=== PATIENT | female | born 2000 | race Caucasian/White ===

== ENCOUNTER 2023-05-14 08:26 | Emergency (ER) | payer OTHER, SELFPAY ==
[2023-05-14] MEDS ORDERED: Ondansetron PF 4 MG/2 ML Vial ONE (08:58)
[2023-05-14] MEDS ORDERED: Morphine 4 MG/ML VIAL ONE (08:58)
[2023-05-14 09:00] LABS: #Basophils 0.1 10x3/uL (0.0-0.2); #Eosinphils 0.4 10x3/uL (0.0-0.5); #Monocytes 0.4 10x3/uL (0.0-1.1); #Neutrophils 3.1 10x3/uL (1.5-8.4); %Basophils 0.8 % (0.0-2.0); %Eosinophils 5.8 % (0.0-6.0); %Lymphocytes 36.4 % (18.0-47.0); %Monocytes 6.3 % (0.0-10.0); %Neutrophils 50.4 % (40.0-75.0); Hemoglobin 13.1 g/dL (12.0-15.5); Mean Corpuscular Volume 82.3 fl (81.6-98.3); Mean Platelet Volume 10.8 fl (7.4-10.4); Platelet Count 381 10x3/uL (150-450); RBC Distribution Width 14.2 % (11.5-14.5); Red Blood Cell (RBC) Count 4.68 10x6/uL (3.90-5.03); White Blood Cell (WBC) Count 6.2 10x3/uL (3.5-10.5)
[2023-05-14 09:06] LABS: BHCG - Serum Negative (NEGATIVE); Pregs Control Background? CLEAR/WHITE (CLR/WHITE); Pregs Control Bar Appear? YES (CONTROL BAR)
[2023-05-14 09:14] LABS: ALT (SGPT) 19 U/L (8-55); AST (SGOT) 17 U/L (5-34); Alkaline Phosphatase 88 U/L (40-110); Anion Gap 14 mmol/L (10-20); BUN (Urea Nitrogen) 11 mg/dL (7.0-18.7); Bilirubin, Total 0.6 mg/dL (0.2-1.2); Calc. Creatinine Clearance 0 mL/min (70-130); Calcium 9.4 mg/dL (7.8-10.44); Carbon Dioxide 21 mmol/L (22-29); Chloride 108 mmol/L (98-107); Estimated GFR 133; Glucose 90 mg/dL (70-105); Lipase 10 U/L (8-78); Potassium 3.8 mmol/L (3.5-5.1); Sodium 139 mmol/L (136-145)
[2023-05-14] MEDS ORDERED: Iopamidol 300 61% 100 ML VIAL FS ONE (09:36)
[2023-05-14 10:17] LABS: Bilirubin Neg (Negative); Blood, Urine Negative (Negative); Clarity Clear (Clear); Glucose, Urine (Dipstick) Normal (Negative); Ketone, Urine Negative (Negative); Leukocyte Negative (Negative); Nitrite Negative (Negative); Protein, Urine (Dipstick) Negative (Neg-Trace); Urobilinogen Normal mg/dL (Less than 2)
[2023-05-14 10:30] LABS: RBC/HPF None Seen HPF (0-3)
[2023-05-14 10:31] LABS: Bacteria/HPF 1+ HPF (None Seen); CAUTI Indications for Culture Pelvic or flank pain; WBC/HPF 0-3 HPF (0-3)
[2023-05-14 10:32] LABS: Urine Culture Reflex No No
== END 2023-05-14 12:14 | disposition home or self-care (01) ==
LOC: CSHERS 08:26
DX: R10.31 Right lower quadrant pain (principal); E03.9 Hypothyroidism, unspecified
CPT/HCPCS: 36415; 74177; 76705; 80053; 81001; 83690; 84703; 85025; 93005; 96361; 96374; 96375; J2270; J2405; Q9967

== ENCOUNTER 2023-06-25 18:29 | Emergency (ER) | payer OTHER ==
[2023-06-25 19:25] LABS: #Monocytes 0.4 10x3/uL (0.0-1.1); #Neutrophils 6.2 10x3/uL (1.5-8.4); %Basophils 0.4 % (0.0-2.0); %Eosinophils 0.1 % (0.0-6.0); %Lymphocytes 5.3 % (18.0-47.0); %Monocytes 5.6 % (0.0-10.0); %Neutrophils 88.5 % (40.0-75.0); Hematocrit 39.3 % (34.9-44.5); Hemoglobin 13.2 g/dL (12.0-15.5); Mean Corpuscular HGB CONC 33.6 g/dL (32.0-36.0); Mean Corpuscular Hemoglobin 27.9 pg (27.0-33.0); Mean Corpuscular Volume 83.1 fl (81.6-98.3); Mean Platelet Volume 11.1 fl (7.4-10.4); Platelet Count 325 10x3/uL (150-450); RBC Distribution Width 13.8 % (11.5-14.5); Red Blood Cell (RBC) Count 4.73 10x6/uL (3.90-5.03)
[2023-06-25 19:33] LABS: ALT (SGPT) 21 U/L (8-55); AST (SGOT) 18 U/L (5-34); Alkaline Phosphatase 92 U/L (40-110); Anion Gap 14 mmol/L (10-20); BUN (Urea Nitrogen) 8 mg/dL (7.0-18.7); Bilirubin, Total 0.2 mg/dL (0.2-1.2); Calc. Creatinine Clearance 0 mL/min (70-130); Calcium 9.2 mg/dL (7.8-10.44); Carbon Dioxide 19 mmol/L (22-29); Chloride 106 mmol/L (98-107); Estimated GFR 133; Globulin 3.2 g/dL (2.4-3.5); Glucose 90 mg/dL (70-105); Potassium 3.9 mmol/L (3.5-5.1); Protein, Total 7.2 g/dL (6.0-8.3); Sodium 135 mmol/L (136-145)
[2023-06-25 19:39] LABS: Troponin I Less than 0.010 ng/mL (< 0.028)
[2023-06-25 20:28] LABS: BHCG - Serum Negative (NEGATIVE); Pregs Control Background? CLEAR/WHITE (CLR/WHITE); Pregs Control Bar Appear? YES (CONTROL BAR)
== END 2023-06-25 21:19 | disposition home or self-care (01) ==
LOC: CSHERS 18:29
DX: U07.1 COVID-19 (principal); R00.0 Tachycardia, unspecified; M79.10 Myalgia, unspecified site
CPT/HCPCS: 36415; 71045; 80053; 84443; 84484; 84703; 85025; 85379; 93005

== ENCOUNTER 2023-10-11 12:34 | Emergency (ER) | payer OTHER, MEDICAID ==
[2023-10-11] MEDS ORDERED: Propranolol 10 MG TAB PO SCH (13:45)
[2023-10-11 13:54] LABS: #Eosinphils 0.2 10x3/uL (0.0-0.5); #Monocytes 0.5 10x3/uL (0.0-1.1); %Eosinophils 5.9 % (0.0-6.0); %Lymphocytes 54.9 % (18.0-47.0); %Monocytes 12.4 % (0.0-10.0); %Neutrophils 25.8 % (40.0-75.0); Hematocrit 36.8 % (34.9-44.5); Hemoglobin 12.8 g/dL (12.0-15.5); Mean Corpuscular HGB CONC 34.8 g/dL (32.0-36.0); Mean Corpuscular Hemoglobin 28.1 pg (27.0-33.0); Mean Corpuscular Volume 80.9 fl (81.6-98.3); Mean Platelet Volume 11.1 fl (7.4-10.4); Platelet Count 298 10x3/uL (150-450); RBC Distribution Width 13.7 % (11.5-14.5); Red Blood Cell (RBC) Count 4.55 10x6/uL (3.90-5.03); White Blood Cell (WBC) Count 3.9 10x3/uL (3.5-10.5)
[2023-10-11 14:11] LABS: ALT (SGPT) 19 U/L (8-55); AST (SGOT) 20 U/L (5-34); Albumin 3.7 g/dL (3.5-5.0); Alkaline Phosphatase 77 U/L (40-110); Anion Gap 14 mmol/L (10-20); BUN (Urea Nitrogen) 10 mg/dL (7.0-18.7); Bilirubin, Total 0.2 mg/dL (0.2-1.2); Calc. Creatinine Clearance 0 mL/min (70-130); Calcium 8.7 mg/dL (7.8-10.44); Carbon Dioxide 18 mmol/L (22-29); Chloride 111 mmol/L (98-107); Estimated GFR 134; Globulin 2.8 g/dL (2.4-3.5); Glucose 84 mg/dL (70-105); Potassium 3.6 mmol/L (3.5-5.1); Protein, Total 6.5 g/dL (6.0-8.3); Sodium 139 mmol/L (136-145)
[2023-10-11 14:13] LABS: SARS-CoV-2 NAA Rapid Test Not Detected (NotDetected)
[2023-10-11 14:30] LABS: Free T4 (Free Thyroxine) 1.99 ng/dL (0.70-1.48); Thyroid Stimulating Hormone Less than 0.0025 uIU/mL (0.35-4.94)
[2023-10-11 14:44] LABS: BHCG - Serum Negative (NEGATIVE); Pregs Control Background? CLEAR/WHITE (CLR/WHITE); Pregs Control Bar Appear? YES (CONTROL BAR)
[2023-10-11 15:28] LABS: Troponin I Less than 0.010 ng/mL (< 0.028)
[2023-10-11] MEDS ORDERED: Acetaminophen 325 MG TAB ONE (15:40)
[2023-10-11 16:05] LABS: SARS-CoV-2 NAA Rapid Test Not Detected (NotDetected)
== END 2023-10-11 16:00 | disposition home or self-care (01) ==
LOC: CSHERS 12:34
DX: B34.9 Viral infection, unspecified (principal); E05.90 Thyrotoxicosis, unspecified without thyrotoxic crisis or storm
CPT/HCPCS: 0241U; 36415; 71045; 80053; 83880; 84439; 84443; 84481; 84484; 84703; 85025; 87081; 87430; 93005; 94760; J7611

== ENCOUNTER 2024-04-05 22:52 | Emergency (ER) | payer MEDICAID, OTHER, SELFPAY | END 2024-04-06 00:55 | disposition home or self-care (01) | LOC: CSHERS 22:52 | DX: S09.90XA Unspecified injury of head, initial encounter (principal); W22.8XXA Striking against or struck by other objects, initial encounter | CPT/HCPCS: 70450 ==